=== PATIENT | female | born 1985 | race Two or more races ===

== ENCOUNTER 2019-04-15 11:04 | Emergency (ER) | payer MEDICAID ==
[~2019-04-15 11:04] MED LIST: MAGN296S68 PO; SENN-121 PO
[2019-04-15 11:58] LABS: INFLUENZA A PATIENT NEGATIVE (NEGATIVE); INFLUENZA B PATIENT NEGATIVE (NEGATIVE)
[2019-04-15] MEDS ORDERED: IV NORMAL SALINE 1000ML BAG 1,000 ML IV ONE (12:00)
[2019-04-15] MEDS ORDERED: ONDANSETRON PF 4 MG/2 ML VIAL. IV ONE (12:00)
--- NOTE | 2019-04-15 12:05 | PHYS DOC ---
Past Medical History Past Medical History: No Pertinent History (JUAN PABLO HEATH APRN) Past Surgical History: (JUAN PABLO HEATH APRN) Alcohol Use: None Drug Use: None (JUAN PABLO HEATH APRN) Adult General Chief Complaint Chief Complaint: FEVER [facility] HPI Patient is a 34 year old female who presents with congestion, fever, headache, and loss of appetite that has been ongoing for 3 days. The patient states that she is seven months . She has been drinking fluids. Denies cough or sore throat. Denies any other symptoms. Complete ROS were reviewed and found to be within normal limits, except as documented in the HPI (JUAN PABLO HEATH APRN) Current Medications Current Medications Current Medications Medications (Trade) Dose Ordered Sig/Addison Start Time Stop Time Status Last Admin Dose Admin Ondansetron HCl (Zofran) 4 mg 1X ONCE 04/15/19 12:00 04/15/19 12:02 DC 04/15/19 12:00 4 MG Potassium Chloride (Klor-Con) 40 meq 1X STAT 04/15/19 13:30 04/15/19 13:50 DC 04/15/19 13:30 40 MEQ Sodium Chloride 1,000 ml @ 1,000 mls/hr 1X ONCE 04/15/19 12:00 04/15/19 12:59 DC 04/15/19 12:00 1,000 MLS/HR (ANDREY MURPHY MD) Allergies Allergies Allergies Coded Allergies Type Severity Reaction Last Updated Verified No Known Drug Allergies 12/13/18 No (ANDREY MURPHY MD) Physical Exam Physical Exam Constitutional: Well developed, well nourished, no acute distress, non-toxic appearance. [] HENT: Normocephalic, atraumatic, bilateral external ears normal, oropharynx moist, no oral exudates, nose turbinates inflamed. Eyes: PERRLA, EOMI, conjunctiva normal, no discharge. [] Neck: Normal range of motion, no tenderness, supple, no stridor. [] Cardiovascular:Heart rate regular rhythm, no murmur [] Lungs & Thorax: Bilateral breath sounds clear to auscultation [] Abdomen: Bowel sounds normal, soft, no tenderness, no masses, no pulsatile masses. [] Skin: Warm, dry, no erythema, no rash. [] Neurologic: Alert and oriented X 3, normal motor function, normal sensory function, no focal deficits noted. [] Psychologic: Affect normal, judgement normal, mood normal. [] (JUAN PABLO HEATH APRN) Current Patient Data Vital Signs Vital Signs Date Time Temp Pulse Resp B/P (MAP) Pulse Ox O2 Delivery O2 Flow Rate FiO2 04/15/19 13:42 94 14 99/58 (72) 98 Room Air 04/15/19 11:24 98.4 98.4 (ANDREY MURPHY MD) Lab Values Laboratory Tests Test 04/15/19 11:28 04/15/19 12:20 04/15/19 13:05 Influenza Type A Antigen Negative (NEGATIVE) Influenza Type B Antigen Negative (NEGATIVE) White Blood Count 6.2 x10^3/uL (4.0-11.0) Red Blood Count 4.12 x10^6/uL (3.50-5.40) Hemoglobin 11.6 g/dL (12.0-15.5) L Hematocrit 33.5 % (36.0-47.0) L Mean Corpuscular Volume 81 fL (79-100) Mean Corpuscular Hemoglobin 28 pg (25-35) Mean Corpuscular Hemoglobin Concent 35 g/dL (31-37) Red Cell Distribution Width 13.0 % (11.5-14.5) Platelet Count 198 x10^3/uL (140-400) Neutrophils (%) (Auto) 76 % (31-73) H Lymphocytes (%) (Auto) 16 % (24-48) L Monocytes (%) (Auto) 7 % (0-9) Eosinophils (%) (Auto) 1 % (0-3) Basophils (%) (Auto) 0 % (0-3) Neutrophils # (Auto) 4.7 x10^3/uL (1.8-7.7) Lymphocytes # (Auto) 1.0 x10^3/uL (1.0-4.8) Monocytes # (Auto) 0.4 x10^3/uL (0.0-1.1) Eosinophils # (Auto) 0.1 x10^3/uL (0.0-0.7) Basophils # (Auto) 0.0 x10^3/uL (0.0-0.2) Urine Collection Type Unknown Urine Color Yellow Urine Clarity Clear Urine pH 7.0 Urine Specific Bentley <=1.005 Urine Protein Negative mg/dL (NEG-TRACE) Urine Glucose (UA) Negative mg/dL (NEG) Urine Ketones (Stick) Negative mg/dL (NEG) Urine Blood Negative (NEG) Urine Nitrite Negative (NEG) Urine Bilirubin Negative (NEG) Urine Urobilinogen Dipstick 0.2 mg/dL (0.2 mg/dL) Urine Leukocyte Esterase Negative (NEG) Urine RBC 0 /HPF (0-2) Urine WBC 1-4 /HPF (0-4) Urine Squamous Epithelial Cells Many /LPF Urine Bacteria Few /HPF (0-FEW) Serum Test, Qualitative Positive (NEG) Sodium Level 140 mmol/L (136-145) Potassium Level 3.1 mmol/L (3.5-5.1) L Chloride Level 104 mmol/L (98-107) Carbon Dioxide Level 21 mmol/L (21-32) Anion Gap 15 (6-14) H Blood Urea Nitrogen 2 mg/dL (7-20) L Creatinine 0.4 mg/dL (0.6-1.0) L Estimated GFR (Cockcroft-Gault) 183.8 BUN/Creatinine Ratio 5 (6-20) L Glucose Level 82 mg/dL (70-99) Calcium Level 8.8 mg/dL (8.5-10.1) Total Bilirubin 0.2 mg/dL (0.2-1.0) Aspartate Amino Transferase (AST) 17 U/L (15-37) Alanine Aminotransferase (ALT) 7 U/L (14-59) L Alkaline Phosphatase 100 U/L (46-116) Total Protein 6.2 g/dL (6.4-8.2) L Albumin 2.5 g/dL (3.4-5.0) L Albumin/Globulin Ratio 0.7 (1.0-1.7) L Laboratory Tests 04/15/19 12:20 Laboratory Tests 04/15/19 13:05 (ANDREY MURPHY MD) EKG EKG [] (JUAN PABLO HEATH APRN) Radiology/Procedures Radiology/Procedures [] (JUAN PABLO HEATH APRN) Course & Med Decision Making Course & Med Decision Making Pertinent Labs and Imaging studies reviewed. (See chart for details) Will get Influenza, labs, and give IV fluids/zofran. Labs are unremarkable besides a 3.1 potassium. heart rates were done on patient by Labor and Delivery. Patient has not had significant OB care and so Dr. Bartlett would like patient to go to L/D for stress test after d/c. Will d/c to L/D with Zofran prescription. (JUAN PABLO HEATH APRN) Course & Med Decision Making Staff Physician Addendum: I was working in the ER during the course of this patient's visit. I was available for consultation as needed, but I was not directly involved in the care of this patient. (ANDREY MURPHY MD) Dragon Disclaimer Dragon Disclaimer This electronic medical record was generated, in whole or in part, using a voice recognition dictation system. (JUAN PABLO HEATH APRN) Departure Departure Impression: Primary Impression: Upper respiratory infection, viral Disposition: 01 HOME, SELF-CARE Condition: STABLE Referrals: UNKNOWN PCP NAME (PCP) Patient Instructions: Upper Respiratory Infection, Adult Additional Instructions: Thank you for visiting [facility]. We appreciate you trusting us with your care. If any additional problems come up don't hesitate to return to visit us. Please follow up with your primary care provider so they can plan additional care if needed and know about the problem that you had. If symptoms worsen come back to the Emergency Department. Any concerning symptoms that start such as chest pain, shortness of air, weakness or numbness on one side of the body, running high fevers or any other concerning symptoms return to the ER. Please take Zyrtec for runny nose per label instruction. Please take Zofran for nausea if needed. Please go upstairs to OB on discharge. Scripts Ondansetron (ONDANSETRON ODT) 4 Mg Tab.rapdis 1 TAB PO PRN Q6-8HRS PRN for NAUSEA, #16 TAB Prov: JUAN PABLO HEATH APRN 04/15/19 JUAN PABLO HEATH APRN Apr 15, 2019 12:05 ANDREY MURPHY MD Apr 15, 2019 14:59
[2019-04-15 12:38] LABS: BASO % 0 % (0-3); BILIRUBIN,URINE NEGATIVE (NEG); CLARITY,URINE CLEAR; COLOR,URINE YELLOW; EOS # 0.1 x10^3/uL (0.0-0.7); EOS % 1 % (0-3); HEMATOCRIT 33.5 % (36.0-47.0); HEMOGLOBIN 11.6 g/dL (12.0-15.5); LYMPH % 16 % (24-48); MEAN CORPUSCULAR HEMOGLOBIN 28 pg (25-35); MEAN CORPUSCULAR HGB CONC 35 g/dL (31-37); MEAN CORPUSCULAR VOLUME 81 fL (79-100); MONO # 0.4 x10^3/uL (0.0-1.1); MONO % 7 % (0-9); NEUT # 4.7 x10^3/uL (1.8-7.7); NEUT % 76 % (31-73); NITRITE,URINE NEGATIVE (NEG); PLATELET COUNT 198 x10^3/uL (140-400); PROTEIN,URINE NEGATIVE (NEG-TRACE); RED BLOOD COUNT 4.12 x10^6/uL (3.50-5.40); UROBILINOGEN,URINE 0.2 mg/dL (0.2 mg/dL); WHITE BLOOD COUNT 6.2 x10^3/uL (4.0-11.0)
[2019-04-15 12:48] LABS: SQUAMOUS EPITHELIAL CELL,UR MANY /LPF
[2019-04-15 12:49] LABS: BACTERIA,URINE FEW /HPF (0-FEW); RBC,URINE 0 /HPF (0-2)
[2019-04-15 13:10] LABS: PREG TEST PT QUAL POSITIVE (NEG)
[2019-04-15 13:22] LABS: CALCIUM 8.8 mg/dL (8.5-10.1); CREATININE 0.4 mg/dL (0.6-1.0); GFR 183.8; POTASSIUM 3.1 mmol/L (3.5-5.1)
[2019-04-15 13:28] LABS: ALBUMIN 2.5 g/dL (3.4-5.0); ALBUMIN/GLOBULIN RATIO 0.7 (1.0-1.7); TOTAL BILIRUBIN 0.2 mg/dL (0.2-1.0); TOTAL PROTEIN 6.2 g/dL (6.4-8.2)
[2019-04-15] MEDS ORDERED: POTASSIUM CHLORIDE 20 MEQ TABLET.ER. PO STA (13:30)
[2019-04-15] MEDS ORDERED: ONDA4TAB12 PO (13:35)
[2019-04-15 13:42] VITALS: BP 99/58
== END 2019-04-15 13:50 | disposition home or self-care (01) ==
LOC: ER 11:04
DX: O99.513 Diseases of the respiratory system complicating pregnancy, third trimester (principal); J06.9 Acute upper respiratory infection, unspecified; Z3A.28 28 weeks gestation of pregnancy
CPT/HCPCS: 36415; 80053; 81001; 84703; 85025; 87804; 96374; 99285; J2405; J7030